=== PATIENT | female | born 1985 | race Caucasian/White ===

== ENCOUNTER 2017-04-21 20:30 | Emergency (ER) | payer OTHER ==
[~2017-04-21] VITALS: Ht 162.6 cm; Wt 51.5 kg
[2017-04-21 20:33] VITALS: Ht 162.6 cm; Wt 51.5 kg
[2017-04-21] MEDS ORDERED: IBUPROFEN 600 MG TAB PO ONE (22:00)
[2017-04-21] MEDS ORDERED: CYCLOBENZAPRINE 10 MG TAB PO ONE (22:00)
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
[2017-04-21] MEDS ORDERED: IBUP-1542 PO (23:57)
[2017-04-21] MEDS ORDERED: CYCL-319 PO (23:57)
[2017-04-22 00:25] VITALS: BP 125/80; PULSE 60; RESP 22; TEMP 98.1
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
== END 2017-04-22 00:27 | disposition home or self-care (01) ==
LOC: FTE 20:30
DX: S29.9XXA Unspecified injury of thorax, initial encounter (principal); V49.40XA Driver injured in collision with unspecified motor vehicles in traffic accident, initial encounter
CPT/HCPCS: 72040; 72072; Z7502; Z7610